=== PATIENT | male | born 1925 | race Caucasian/White ===

== ENCOUNTER 2017-05-20 11:04 | Observation (INO) | payer MEDICARE ==
[2017-05-20] MEDS ORDERED: NS 0.9% 1000 ML* 1,000 ML IV ONE (11:33)
--- NOTE | 2017-05-20 12:07 | RAD ---
Indication: Possible TIA. Resolved aphasia. Comparison: October 05, 2013 Technique: Noncontrast CT vertex of skull through foramen magnum. Report: Moderate prominence of the cerebral sulci. Decreased density in the periventricular and subcortical white matter while non-specific is most likely due to chronic microangiopathy. Negative for coy matter white matter obscuration, intra or extra-axial hemorrhage, or mass effect. Chronic atherosclerotic calcification at the intracranial internal carotid arteries as well as the vertebrobasilar system. Unremarkable partially visualized orbital contents. Negative for suspicious calvarial or skull base lesions or fractures. Clear partially visualized paranasal sinuses and mastoid air spaces. Evidence for prior partial LEFT mastoidectomy. Unremarkable scalp. IMPRESSION: Involutional change and stigmata of chronic small vessel ischemic disease. No acute intracranial process evident.
[2017-05-20 12:09] LABS: ABS Basophils 0.1 10^3/ul (0-0.2); ABS Eosinophils 0.3 10^3/ul (0-0.6); ABS Lymphocytes 2.3 10^3/ul (1.0-4.8); ABS Monocytes 0.6 10^3/ul (0-0.8); ABS Nucleated RBC 0 10^3/ul; Eosinophil % 2.3 % (0-6); Hematocrit 41 % (42-52); Hemoglobin 13.9 g/dl (14.0-18.0); Mean Corpuscular HGB Conc 34 g/dl (31-36); Mean Corpuscular Hemoglobin 35 pg (27-31); Mean Corpuscular Volume 105 fL (80-94); Mean Platelet Volume 8.2 um3 (7.4-10.4); Nucleated Red Blood Cells % 0; Platelet Count 172 10^3/ul (150-450); Red Blood Count 3.95 10^6/ul (4.0-5.4); Red Cell Distribution Width 15 % (10.5-15); White Blood Count 12.3 10^3/ul (3.5-10.8)
[2017-05-20 12:19] LABS: INR 0.92 (0.77-1.02)
[2017-05-20 12:25] LABS: EGFR Non-African American 60.5 (>60)
--- NOTE | 2017-05-20 12:27 | RAD ---
Indication: Neurologic changes. Possible TIA. Comparison: January 03, 2017 Technique: Upright AP 1210 hours Report: Bilateral costochondral calcifications noted. Elevated lung volumes. No focal pulmonary lesion, compelling alveolar consolidation, pleural effusion, pneumothorax. Negative for cardiomegaly. Unremarkable central pulmonary vasculature. Mildly tortuous descending thoracic aorta without change. IMPRESSION: 1. Elevated lung volumes strongly favoring presence of obstructive lung disease. 2. No acute cardiopulmonary process evident.
[2017-05-20] MEDS ORDERED: Iohexol 350* (CONTRAST) 500 ML MDV IV ONE (13:05)
--- NOTE | 2017-05-20 14:25 | RAD ---
INDICATION: TIA. Resolved aphasia. COMPARISON: CT brain of the same date and January 18, 2015 carotid ultrasound. October 13, 2009 CT angiogram. TECHNIQUE: Multidetector CT images were obtained from the aortic arch to the vertex of the head with 80 mL Omnipaque 350 IV contrast. Arterial phase of enhancement. Multiplanar reformation including maximum intensity projection. 3-D arterial volume rendering. Stenosis estimations based on denominator of distal arterial diameter. 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 Atherosclerotic plaque at the RIGHT subclavian artery with less than 50% stenosis. Atherosclerotic plaque at the RIGHT vertebral artery ostium with approximate 50% stenosis resulting without change. Moderate atherosclerotic plaque at the RIGHT common carotid artery with up to 50% stenosis resulting increased over the prior exam. Calcific and noncalcific plaque at the RIGHT carotid bulb and proximal internal carotid artery with up to 50% stenosis resulting without significant change. Tortuous distal RIGHT common carotid artery. Atherosclerotic plaque at the LEFT common carotid artery with approximate 30% stenosis resulting. Atherosclerotic plaque at the LEFT carotid bulb and proximal internal carotid artery without hemodynamic significant stenosis. LEFT internal carotid endarterectomy compared with the prior exam. Diffuse degenerative spondylosis and facet joint osteoarthritis. At C5-C6 large dorsal disc osteophyte complex results in moderate acquired central canal stenosis without significant change. NECK ANGIOGRAM IMPRESSION: 1. 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 2. Less than 50% stenosis of the RIGHT subclavian artery. 3. Unchanged approximate 50% stenosis at the ostium of the RIGHT vertebral artery. 4. Approximate 50% stenosis at the RIGHT common carotid artery with interval increase. 5. Approximate 50% stenosis at the proximal RIGHT internal carotid artery without significant change. 6. Postsurgical change of LEFT carotid endarterectomy without evidence for hemodynamic significant restenosis. HEAD ANGIOGRAM REPORT: Diffuse calcific plaque at the bilateral intracranial internal carotid arteries with suggestion of long segment approximate 50% stenosis without significant change. Unremarkable patent M1 and M2 segments of the cerebral arteries and A1 and A2 segments of the anterior cerebral arteries. No definitive anterior communicating artery visualized. Unremarkable cerebellar artery origins and basilar artery. Patent posterior cerebral arteries are supplied primarily by the posterior circulation with normal variant hypoplastic posterior communicating arteries. No visualized intracranial aneurysms. Normal opacification of the dural venous sinuses. HEAD ANGIOGRAM IMPRESSION: No central intracranial arterial occlusion or compelling high-grade stenosis. CPT II: CPT II Codes: 3100F
[2017-05-20] MEDS ORDERED: Metoprolol Tartrate IV* 1 MG/ML 5 ML VIAL IV ONE (14:45)
[2017-05-20 15:11] LABS: Urine Appearance Cloudy; Urine Blood Negative (Negative); Urine Color Yellow; Urine Ketones Negative (Negative); Urine Protein 1+(30 mg/dL) (Negative); Urine Specific Gravity 1.012 (1.010-1.030); Urine Urobilinogen Negative (Negative)
[2017-05-20] MEDS ORDERED: hydrALAZINE IV* 20 MG/ML VIAL IV SLOW PU ONE (15:53)
[2017-05-20] MEDS ORDERED: Acetaminophen TAB* 325 MG PO PRN (16:50)
[2017-05-20] MEDS ORDERED: Al Hydrox/Mg Hydrox/Simet LIQ* 30 ML UDC PO PRN (16:50)
[2017-05-20] MEDS ORDERED: Albuterol 2.5 MG/3 ML NEB.SOL* (0.083%) INH PRN (16:50)
[2017-05-20] MEDS ORDERED: Albuterol HFA INHALER* 8 gm MDI INH PRN (17:21)
[2017-05-20] MEDS ORDERED: hydrALAZINE IV* 20 MG/ML VIAL IV SLOW PU PRN (19:24)
[2017-05-20] MEDS: Atenolol TAB* 25 MG PO SCH (19:52)
[2017-05-20] MEDS: NIFEdipine CAP* 10 MG PO SCH (19:52)
[2017-05-20] MEDS: Enoxaparin(*) 40 MG/0.4 ML SYR SUBCUT SCH (19:55)
[2017-05-20] MEDS: Captopril TAB* 12.5 MG PO SCH (19:55)
[2017-05-20] MEDS: Dipyridamole/Aspirin 25/200* CAP.ER PO SCH (19:55)
[2017-05-20] MEDS ORDERED: Atorvastatin* 20 MG TAB PO SCH (21:00)
--- NOTE | 2017-05-20 22:28 | HP ---
CC: Dr. Schwartz * HISTORY AND PHYSICAL: DATE OF ADMISSION: 05/20/17 TIME OF ADMISSION: 5 p.m. PRIMARY CARE PHYSICIAN: Dr. Schwartz. CHIEF COMPLAINT: Difficulty with his speech. HISTORY OF PRESENT ILLNESS: This is an 89-year-old male with history of TIA and peripheral vascular disease who presents with 10 minutes of difficulty word finding and slurred speech that began this morning on his way to [place]. He is accompanied by his in the emergency department. She was driving them to [place] this morning when she noticed that Mr. Brantley was unable to use the words he was trying to use and that his speech was slurred. Mr. Brantley recalls this vividly and states that he felt frustrated that he could not explain what he was trying to explain and when he was trying to describe the weather is beautiful, it came out as the weather was snowy and he could hear that the words that were coming out of his mouth were different than what he was trying to say. His believes this episode lasted approximately 10 minutes. They got to [place] and assessed him in the parking lot and felt that he was back to his baseline, so she drove them back to [facility] where they were evaluated in the health center there and EMS was called. He continued to be at his baseline neurologic status; however, EMS recommended evaluation in the emergency department, so they traveled by ambulance to our ED. Upon arrival to the emergency department, he was noticed to be hypertensive at 162/63, but remained at his baseline neurologically. He has been well recently and has no recent cough, cold, sore throat, fevers, chills, sick contacts, no recent falls. He ambulates with a cane. He performs all his ADLs and IADLs independently except driving, which he has not done for 4 years. PAST MEDICAL HISTORY: COPD; peripheral arterial disease, status post bilateral fem-pop bypasses; carotid artery endarterectomy on the left; hypertension; TIA 4 years ago. PAST SURGICAL HISTORY: Carotid endarterectomy, fem-pop bypass, many dermatologic surgeries. SOCIAL HISTORY: He lives with his at [facility]. 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 REVIEW OF SYSTEMS: Negative except as per the HPI. PHYSICAL EXAMINATION GENERAL: Alert, well-appearing man, in no acute distress. VITAL SIGNS: Blood pressure 201/71, heart rate 59, pulse ox 92% on room air, respiratory rate 17, temperature 97.9. HEENT: Seborrheic keratosis over the scalp. Pupils 3 mm and reactive to light bilaterally. No nystagmus. No pharyngeal exudates or erythema. Tongue is midline. Face is symmetric. NECK: No cervical lymphadenopathy. No JVP. LUNGS: Scattered end-expiratory wheezes. No rhonchi or rales. No spinous process tenderness. No CVA tenderness. CHEST: Barrel chested. Regular rate and rhythm. No murmurs. PMI is nondisplaced. ABDOMEN: Soft, nontender, and nondistended. No guarding or rebound. EXTREMITIES: No edema. DP pulses are 1+ bilaterally. No hair on the distal extremities. NEUROLOGIC: Alert and oriented x3. Excellent short and long-term memory. Strength is 5+ in all extremities. Coordination is intact. He follows complex commands. Proprioception is intact and sensation is intact. DIAGNOSTIC STUDIES/LAB DATA: Sodium 140, potassium 4.5, chloride 106, bicarb 32, BUN 22, creatinine 1.14, glucose 104. Lactic acid 0.8. LDL 70, HDL 43.6, triglycerides 91, cholesterol 132, troponin 0.00. Head CTA, the neck angiogram shows chronic occlusion of the proximal left subclavian with subclavian steal less than 50% stenosis of the left subclavian artery, unchanged approximately 50% stenosis at the ostium of the right vertebral artery, approximately 50% stenosis of the right common carotid artery with interval increase, approximate 50% stenosis at the proximal right internal carotid artery without significant change, postsurgical change of left carotid endarterectomy without evidence of hemodynamic significant restenosis. Head angiogram shows diffuse calcific plaque at the bilateral intracranial internal carotid arteries with suggestion of long segment approximately 50% stenosis without significant change, M1 and M2 segments of the cerebral arteries and A1 and A2 segments of the anterior cerebral arteries, no definitive anterior communicating artery visualized, unremarkable cerebellar artery origins and basilar artery, patent posterior cerebral arteries are supplied primarily by the posterior circulation with normal variant hyperplastic posterior communicating arteries. Chest x-ray: Elevated lung volume strongly favoring presence of obstructive lung disease, no acute cardiopulmonary process evident. Brain CT: Involutional change and stigmata of chronic small vessel ischemic disease. No acute intracranial process is evident. ASSESSMENT AND PLAN: This is an 89-year-old man with history of transient ischemic attack and peripheral vascular disease, who presents with 10 minutes of slurred speech and trouble word finding this morning that has now resolved. 1. Transient ischemic attack. At this point, his symptoms are most suspicious for a transient ischemic attack especially given his extensive vascular history and resolution of symptoms within 10 minutes. He warrants admission for observation overnight and monitoring on telemetry. I will check an MRI in the morning and he should also have a transthoracic echocardiogram in the morning. I am consulting Neurology. He is already on good medical management at baseline including a high potency statin and antiplatelet medication. I will continue these and look to Neurology for any further medical management of this vascular disease. 2. Hypertensive urgency. I cannot classify this as an hypertensive emergency at this point, especially now that he has returned to his baseline with an even more elevated blood pressure than when he arrived. I would like to treat his hypertension with oral medications with a goal for systolic blood pressure in the 140s to 160s. He takes nifedipine XL at home. So, I will use the short- acting nifedipine for ease of titration. 3. Peripheral arterial disease, status post fem-pop bypass. Continue Aggrenox , simvastatin. 4. Chronic obstructive pulmonary disease. Continue p.r.n. albuterol inhaler. 5. Code status. He is DNR. 6. Disposition. Admit Mr. Brantley to the telemetry floor under the hospitalist service with a Neurology consult. [id number]/CPS #: [id number] MTDD
[2017-05-21] MEDS ORDERED: Finasteride TAB* 5 MG PO SCH (09:00)
[2017-05-21] MEDS: Dipyridamole/Aspirin 25/200* CAP.ER PO SCH (09:21)
[2017-05-21] MEDS: Atenolol TAB* 25 MG PO SCH (09:21)
[2017-05-21] MEDS: Captopril TAB* 12.5 MG PO SCH (09:21)
[2017-05-21] MEDS: NIFEdipine CAP* 10 MG PO SCH ×2 (09:22→14:17)
--- NOTE | 2017-05-21 11:20 | RAD ---
HISTORY: TIA COMPARISONS: Head CT dated May 20, 2017 TECHNIQUE: The following sequences were obtained of the head: Sagittal T1-weighted images, axial T2-weighted images, axial FLAIR images, axial susceptibility weighted images, axial T1-weighted images. Additionally, axial diffusion-weighted images were obtained with calculated apparent diffusion coefficients. FINDINGS: The study is limited by patient motion artifact. HEMORRHAGE/INFARCT: There is no hemorrhage or acute infarct. MASSES/SHIFT: There is no mass or shift. EXTRA-AXIAL SPACES/MENINGES: There are no extra-axial fluid collections. SULCI AND VENTRICLES: There is diffuse and proportional enlargement of the sulci and ventricles. CEREBRUM: There is diffuse multifocal elevated T2/FLAIR signal in the periventricular and subcortical white matter. BRAINSTEM: There is elevated T2/FLAIR signal within the pontine white matter. CEREBELLUM: There are no focal parenchymal abnormalities. The cerebellar tonsils are normal in size and position. SELLA: The sella is normal. PINEAL: The pineal region is clear. CP ANGLE/TEMPORAL BONES: The labyrinthine structures are grossly normal. VESSELS: Normal flow-voids are noted within the visualized vertebral vasculature. DIFFUSION ABNORMALITIES: There are no diffusion abnormalities. PARANASAL SINUSES/MASTOIDS: The paranasal sinuses are clear. ORBITS: The orbits are unremarkable. BONES AND SOFT TISSUE: No bone or soft tissue abnormalities are noted. OTHER: None IMPRESSION: 1. LIMITED STUDY. 2. DIFFUSE INVOLUTIONAL CHANGE 3. ELEVATED T2/FLAIR SIGNAL IN THE PERIVENTRICULAR, SUBCORTICAL, AND PONTINE WHITE MATTER, NONSPECIFIC, BUT SUGGESTIVE OF CHRONIC SMALL VESSEL ISCHEMIA. 4. NO RESTRICTED DIFFUSION TO SUGGEST ACUTE INFARCT.
--- NOTE | 2017-05-21 14:17 | PN ---
Subjective Date of Service: 05/21/17 Interval History: Patient seen and examined. Alert, no complaints, symptoms currently resolved. Having cardiac echo completed now. Denies fever, chills, headache, dizziness, n/ v, pain, SOB or chest pain. Objective Active Medications: Acetaminophen (Tylenol Tab*) 650 mg PO Q4H PRN PRN Reason: FEVER/PAIN Al Hydrox/Mg Hydrox/Simethicone (Maalox Plus*) 30 ml PO Q6H PRN PRN Reason: INDIGESTION Albuterol (Ventolin 2.5 Mg/3 Ml Neb.Nicole*) 2.5 mg INH [id number] AWAKE PRN PRN Reason: sob/wheezing Albuterol (Ventolin Hfa Inhaler*) 2 puff INH Q4H PRN PRN Reason: SOB/WHEEZING Atenolol (Tenormin Tab*) 25 mg PO BID [facility] Last Admin: 05/21/17 09:21 Dose: 25 mg Atorvastatin Calcium (Lipitor*) 20 mg PO BEDTIME [facility] Last Admin: 05/20/17 19:55 Dose: 20 mg Captopril (Capoten Tab*) 12.5 mg PO BID [facility] Last Admin: 05/21/17 09:21 Dose: 12.5 mg Dipyridamole/Aspirin (Aggrenox 25/200*) 1 cap.er PO BID [facility] Last Admin: 05/21/17 09:21 Dose: 1 cap.er Enoxaparin Sodium (Lovenox(*)) 40 mg SUBCUT Q24H [facility] Last Admin: 05/20/17 19:55 Dose: 40 mg Finasteride (Proscar Tab*) 5 mg PO DAILY [facility] Last Admin: 05/21/17 09:21 Dose: 5 mg Hydralazine HCl (Apresoline Iv*) 5 mg IV SLOW PU Q6H PRN PRN Reason: SBP > 185 Nifedipine (Procardia Cap*) 30 mg PO TID [facility] Last Admin: 05/21/17 09:22 Dose: 30 mg Vital Signs - 8 hr 05/21/17 05/21/17 07:47 11:45 Temperature 98.2 F 97.9 F Pulse Rate 63 60 Respiratory 18 Rate Blood Pressure 162/46 141/43 (mmHg) O2 Sat by Pulse 93 94 Oximetry Oxygen Devices in Use Now: None Appearance: Alert, NAD Ears/Nose/Mouth/Throat: NL Teeth, Lips, Gums, Mucous Membranes Moist Neck: NL Appearance and Movements; NL JVP, Trachea Midline Respiratory: Symmetrical Chest Expansion and Respiratory Effort, Clear to Auscultation Cardiovascular: NL Sounds; No Murmurs; No JVD, RRR, No Edema Neurological: Alert and Oriented x 3, NL Sensation, NL Muscle Strength and Tone Nutrition: Taking PO's Result Diagrams: 05/20/17 11:56 05/20/17 11:56 Diagnostic Imaging: Patient Name: DONN DELEON Medical Record#: [id number] Ordering Physician: Katherine Miner [employer] Acct.#: [id number] : 1925 Age: 89 Sex: M Location: [address] [place] [address]/TELEMETRY Exam Date: 05/21/17857 ADM Status: ADM Umesh Order Information: MRI BRAIN W/O Accession Number: [id number] CPT: 34522 HISTORY: TIA COMPARISONS: Head CT dated May 20, 2017 TECHNIQUE: The following sequences were obtained of the head: Sagittal T1- weighted images, axial T2-weighted images, axial FLAIR images, axial susceptibility weighted images, axial T1-weighted images. Additionally, axial diffusion-weighted images were obtained with calculated apparent diffusion coefficients. FINDINGS: The study is limited by patient motion artifact. HEMORRHAGE/INFARCT: There is no hemorrhage or acute infarct. MASSES/SHIFT: There is no mass or shift. EXTRA-AXIAL SPACES/MENINGES: There are no extra-axial fluid collections. SULCI AND VENTRICLES: There is diffuse and proportional enlargement of the sulci and ventricles. CEREBRUM: There is diffuse multifocal elevated T2/FLAIR signal in the periventricular and subcortical white matter. BRAINSTEM: There is elevated T2/FLAIR signal within the pontine white matter. CEREBELLUM: There are no focal parenchymal abnormalities. The cerebellar tonsils are normal in size and position. SELLA: The sella is normal. PINEAL: The pineal region is clear. CP ANGLE/TEMPORAL BONES: The labyrinthine structures are grossly normal. VESSELS: Normal flow-voids are noted within the visualized vertebral vasculature. DIFFUSION ABNORMALITIES: There are no diffusion abnormalities. PARANASAL SINUSES/MASTOIDS: The paranasal sinuses are clear. ORBITS: The orbits are unremarkable. BONES AND SOFT TISSUE: No bone or soft tissue abnormalities are noted. OTHER: None IMPRESSION: 1. LIMITED STUDY. 2. DIFFUSE INVOLUTIONAL CHANGE 3. ELEVATED T2/FLAIR SIGNAL IN THE PERIVENTRICULAR, SUBCORTICAL, AND PONTINE WHITE MATTER, NONSPECIFIC, BUT SUGGESTIVE OF CHRONIC SMALL VESSEL ISCHEMIA. 4. NO RESTRICTED DIFFUSION TO SUGGEST ACUTE INFARCT. <Electronically signed by Iftikhar Clifton MD in [place]> 05/21/17 1116 Dictated By: Iftikhar Clifton MD Dictated Date/Time: 05/21/17 1116 Transcribed Date/Time: 05/21/17 111 Copy to: 1 of 2 Assess/Plan/Problems-Billing Assessment: This is an 89 year old male patient admitted with c/o TIA like symptoms. - Patient Problems (1) TIA (transient ischemic attack) Comment: - CT/CTA/MRI negative for acute infarct or pathology - continue statin - Pending neuro eval - Pending ECHO read (2) Hypertension Code(s): I10 - ESSENTIAL (PRIMARY) HYPERTENSION SNOMED Code(s): 04737183 Comment: - Hypertensive urgency now resolved - Continue home meds with hydralazine as needed (3) HLD (hyperlipidemia) Code(s): E78.5 - HYPERLIPIDEMIA, UNSPECIFIED SNOMED Code(s): 07722337 Comment: - continue statin (4) PAD (peripheral artery disease) Code(s): I73.9 - PERIPHERAL VASCULAR DISEASE, UNSPECIFIED SNOMED Code(s): 920831252 Comment: - Continue aggrenox and statin (5) COPD (chronic obstructive pulmonary disease) Code(s): J44.9 - CHRONIC OBSTRUCTIVE PULMONARY DISEASE, UNSPECIFIED SNOMED Code(s): 63319322 Comment: - albuterol PRN Status and Disposition: Remain inpatient. Counseling and/or Coordination of Care Minutes: Coordinated with patient's and staff
[2017-05-21 16:12] VITALS: BP 132/52
[2017-05-21] MEDS: Enoxaparin(*) 40 MG/0.4 ML SYR SUBCUT SCH (16:18)
--- NOTE | 2017-05-21 16:25 | ECHO ---
Patient: DONN DELEON [facility] Rec#: [id number] : 1925 Date: 05/21/2017 Age: 89y Height: 167.6 cm / 66.0 in Weight: 60.3 kg / 132.9 lbs Sex: M BSA: 1.7 Room#: 432 Admit Date#: 05/20/2017 Type: Inpatient Referring: Doris Melo MD Reading: Tin Ravi DO Assistant Kitchen Manager: Jennifer Mares RN RDCS CC: Shiva Schwartz MD Transthoracic Echocardiogram Indication: TIA BP: 192/62 HR: 60 Rhythm: NSR Findings History: CAD, HTN, PVD, former smoker, COPD Technical Comments: The study quality is fair. The study is technically limited due to poor parasternal windows. The study is technically limited due to the patient's history of COPD. The study is technically limited due to the patient's smoking history. Completed at 1335. Left Ventricle: The left ventricular chamber size is normal. Mild to moderate concentric left ventricular hypertrophy is observed. Global left ventricular wall motion and contractility are within normal limits. The left ventricle appears hyperdynamic. The estimated ejection fraction is greater than 65%. Abnormal left ventricular diastolic function is observed. Left Atrium: The left atrium is mildly dilated. Right Ventricle: The right ventricular chamber size and systolic function are within normal limits. Right Atrium: The right atrium is mildly dilated. A patent foramen ovale is not demonstrated by color Doppler. Aortic Valve: The aortic valve structure is not well visualized. The aortic valve leaflets are mildly thickened. There is no evidence of aortic regurgitation. There is no evidence of aortic stenosis. Mitral Valve: Mild mitral annular calcification present. The mitral valve leaflets are mildly thickened. There is trace to mild mitral regurgitation. There is no evidence of mitral stenosis. Tricuspid Valve: The tricuspid valve leaflets are normal. There is trace tricuspid regurgitation. Unable to estimate the right ventricular systolic pressure. There is no tricuspid stenosis. Pulmonic Valve: The pulmonic valve structure is not well visualized. There is no evidence of pulmonic regurgitation. There is no pulmonic stenosis. Pericardium: There is no significant pericardial effusion. Aorta: There is mild dilatation of the ascending aorta. The aortic arch is not well visualized. The aortic root is normal in size. Pulmonary Artery: The main pulmonary artery is not well visualized. Venous: The inferior vena cava appears normal in size. There is a greater than 50% respiratory change in the inferior vena cava dimension. Conclusions The left ventricular chamber size is normal. Mild to moderate concentric left ventricular hypertrophy is observed. The left ventricle appears hyperdynamic. The estimated ejection fraction is greater than 70%. The left atrium is mildly dilated. The right ventricular chamber size and systolic function are within normal limits. No significant valvular abnormalities noted. There is mild dilatation of the ascending aorta. No recent echocardiogram available for comparison. Measurements Name Value Normal Range RVDdMajor (2D) 3.8 cm (2.2 - 4.4) RAd ISD 4CH 5.2 cm (3.4 - 4.9) RA (A4C)W 3.1 cm (2.9 - 4.6) IVSd (2D) 1.3 cm (0.6 - 1) LVPWd (2D) 1.3 cm (0.6 - 1) LVIDd (2D) 3.7 cm (3.6 - 5.4) LVIDs (2D) 2.4 cm - LV FS (2D) 35 % (25 - 45) Aortic Annulus 1.8 cm (1.4 - 2.6) Ao root diameter (2D) 3.3 cm (2.1 - 3.5) Ascending Ao 3.6 cm (2.1 - 3.4) LA dimension (AP) 2D 3.9 cm (2.3 - 3.8) LAd ISD 4CH 4.9 cm (2.9 - 5.3) LA ISD 4CH W 3.9 cm (2.5 - 4.5) Name Value Normal Range LA ESV SP 4CH (A/L) 50 ml - LA ESV SP 2CH (A/L) 47 ml - LA ESV BP (A/L) 52 ml - LA ESV BP (A/L) index 31 ml/m2 - LA ESV SP 4CH (MOD) 47 ml - LA ESV SP 2CH (MOD) 46 ml - Name Value Normal Range MV E-wave Vmax 0.86 m/sec - MV deceleration time 337 msec - MV A-wave Vmax 1.1 m/sec - MV E:A ratio 0.8 ratio - LV septal e' Vmax 0.07 m/sec - LV lateral e' Vmax 0.06 m/sec - LV E:e' septal ratio 12.3 ratio - LV E:e' lateral ratio 14.3 ratio - Name Value Normal Range AV Vmax 1.2 m/sec - AV VTI 33.9 cm - AV peak gradient 5.9 mmHg - AV mean gradient 4.1 mmHg - LVOT Vmax 1 m/sec - LVOT VTI 24.8 cm - LVOT peak gradient 4 mmHg - LVOT mean gradient 2.1 mmHg - Name Value Normal Range IVC diameter 1.9 cm - Name Value Normal Range PV Vmax 0.82 m/sec -
--- NOTE | 2017-05-21 20:05 | CONS ---
CC: Dr. Schwartz * NEUROLOGY CONSULTATION: DATE OF CONSULT: 05/21/17 PRIMARY CARE PHYSICIAN: Dr. Schwartz. REQUESTING PHYSICIAN: Dr. Doris Melo. REASON FOR CONSULT: TIA. HISTORY OF PRESENT ILLNESS: Mr. Brantley is an 89-year-old man with past history of peripheral vascular disease, COPD, and TIA, who presented to the emergency department yesterday with approximately 10 to 20 minutes of fluent aphasia. He reports that he and his were driving to [employer] when he was speaking and suddenly his words did not make any sense. He also mentions that he was making up new words as he was speaking. They got to the [employer] parking lot, but then turned around and went back to [facility] and was evaluated by the medical personnel there, who then called EMS and brought him to the emergency department. At that time, he was back essentially at his baseline neurologic status. He was able to ambulate from his car back into [facility], but his states he was walking a little bit slower than his normal for him and he did mention to her that he felt a bit dizzy, but he does not recall that now. He indicates that his blood pressure always runs high and will often average around 160 systolic. He notes that his home cuff reads 17 mmHg higher than the medical personnel at [facility], but it is not unusual for him to see readings of 180, 190, or 200 systolic on his own home cuff. He also continues to smoke 3 cigarettes a day with a past history of smoking up to 2 packs per day. He is very adamant that he has no interest in discontinuing smoking completely as he feels this is his only pleasure left in life. In the emergency department, he underwent CT as well as CTA of his head and neck. He was then admitted to the hospital and he has been monitored on telemetry and has undergone MRI scan of the brain as well as echocardiogram. PAST MEDICAL HISTORY: COPD; peripheral vascular disease, status post bilateral fem- pop bypasses; carotid stenosis, status post carotid endarterectomy on the left; hypertension; TIA several years ago, which they believe involved word finding difficulties and difficulty producing speech, they also described some episodes where he would have drooping of one side of his face, which they believe is the left. PAST SURGICAL HISTORY: Carotid endarterectomy, fem-pop bypasses bilaterally, dermatologic surgeries related to basal cell carcinoma. MEDICATIONS: Home medication list: 1. Nifedipine ER 60 mg q.p.m. 2. Finasteride 5 mg daily. 3. Ventolin inhaler p.r.n. 4. Zantac 75 mg b.i.d. 5. Nifedipine ER 30 mg q.a.m. 6. Aggrenox b.i.d. 7. Simvastatin 40 mg at bedtime. 8. Captopril 12.5 mg twice daily. 9. Atenolol 25-50 mg twice daily. ALLERGIES: There is a reported allergy to TETANUS TOXOID. FAMILY HISTORY: Noncontributory at this time. SOCIAL HISTORY: He lives with his at [facility]. He smokes 3 cigarettes per day and is a long-time smoker. 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 He drinks half a glass of bourbon in water per night. He denies any other drug use. REVIEW OF SYSTEMS: As per the HPI, otherwise negative. PHYSICAL EXAM: Vital Signs: Temperature 97.9, blood pressure 141/43, heart rate 60, oxygen saturation 94% on room air. In review of his blood pressures since admission, the highest measured was 211/77 at around 3 p.m. yesterday. On general exam, he is an elderly, thin-appearing man, in no acute distress. His heart is in a regular rate and rhythm with no obvious murmurs. There are bilateral carotid bruits. He has arcus senilis bilaterally. The lungs were clear but he had distant breath sounds bilaterally. There is no lower extremity edema. On neurologic examination, he is oriented to the month and the year, but initially states that it is 1918 and then corrects to 2018. He was a day or two off on the exact date. He was able to read the stroke cards without any difficulty. His pupils are small at one point 5 mm bilaterally. His versions are full with the exception of some limitation of upgaze and no nystagmus. Visual rodgers are full to confrontation. Facial sensation and musculature is full and symmetric. Hearing is intact to loud voice. The palate elevates symmetrically and the tongue is midline. On motor examination, he has normal tone in the upper and lower extremities with reduced bulk throughout. He has some very mild symmetric weakness in his upper extremities proximally greater than distally, but nothing focal and no pronator drift. Similarly, he has a very mild proximal weakness in the lower extremities, better distally. Sensation is intact to pinprick in the upper and lower extremities. Reflexes are 2+ in the upper extremities and knees, absent at the ankles with downgoing toes. [id number] is intact without ataxia. He ambulates with a cane with a steady gait. DIAGNOSTIC STUDIES/LAB DATA: His white count was slightly elevated at 12.3 yesterday, hematocrit 41, hemoglobin 13.9, platelet count 172. Coagulation studies were normal. His chemistry panel was overall unremarkable and his LDL is 69, total cholesterol 127, HDL 37.7, and triglycerides 103. His urinalysis was negative. His brain CT was personally reviewed and shows evidence of global atrophy and small vessel disease. 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 There is also plaque at the right subclavian artery with less than 50% stenosis. There is moderate plaque in the right common carotid with up to 50% stenosis and a similar degree of stenosis in the right internal carotid artery. He has less than 50% stenosis in the left carotid artery. He has significant atherosclerotic disease in the intracranial circulation, but no obvious occlusions or major areas of stenosis. His brain MRI was personally reviewed and shows extensive small vessel disease, but no acute changes. IMPRESSION AND PLAN: Carlos Alberto Brantley is an 89-year-old man with multiple vascular risk factors including poorly controlled hypertension and continued tobacco use, who presented with transient ischemic attack of fluent aphasia yesterday. He appears to be back to his neurologic baseline at this time. He was treated with Aggrenox and I am not inclined to change his antiplatelet therapy at this point since he has other modifiable risk factors, which are likely more pertinent. I discussed this with him and his that he needs improved blood pressure control though recognizing that in his age group, we do not want to drop his blood pressure too much. I think if possible it would be advisable to get his blood pressures down more into the 140s and encouraged him to obtain a different blood pressure cuff which would be more accurate at home. He was encouraged to quit smoking, but is pretty unequivocal that he is not interested in this. He was encouraged to continue exercising at [facility], though to take it easy for the rest of this week. 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 [id number]/[facility] #: [id number] GREG
--- NOTE | 2017-05-22 03:21 | DS ---
CC: Dr. Reymundo Mathew * DISCHARGE SUMMARY: DATE OF ADMISSION: 05/20/17 DATE OF DISCHARGE: 05/21/17 PRIMARY CARE PROVIDER: Shiva Schwartz MD ATTENDING FOR THIS ADMISSION: Phillip Clement MD * (DICTATED BY SU HENRY NP) HOSPITAL COURSE: This is a very pleasant 89-year-old male patient who was brought into the emergency department initially from [facility], where he does live with his . Per the notes, the patient was having some speech difficulties that had occurred yesterday morning when he was going to [employer]. This difficulty with speech lasted about 20 minutes. EMS was called. Then he had no deficits after that, but the patient said he felt tired and weak and some lightheadedness, but he had no further complaints. The patient came to the emergency department for evaluation. He was worked up for TIA as he has had TIAs in the past. He denies any history of dementia or seizures or any other neurologic impairments. The patient was seen by Dr. Esther Solano of the neurologic service. The patient had a followup imaging studies. He had a cardiac echo, which showed left ventricular chamber size as normal. Mild-to- moderate concentric left ventricular hypertrophy, also left ventricle appears hyperdynamic. The estimated ejection fraction is greater than 70%. Left atrium is mildly dilated. The right ventricular chamber size and systolic function are within normal limits. There are no significant valvular abnormalities noted and there was mild dilatation of the ascending aorta. The patient also had CT of the head, CTA and MRI. Brain CT showed no acute findings. CTA, however, focalities, which were likely old but may have contributed to his current symptoms. 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 MRI that was subsequently completed shows a limited study with diffuse involutional change, elevated T2/FLAIR signal in the periventricular, subcortical and pontine white manner, which is nonspecific but is suggestive of chronic small vessel ischemia with no restricted diffusion to suggest acute infarct. PHYSICAL EXAMINATION: On the day of discharge, the patient is awake and alert, in no acute distress. Vital signs are currently blood pressure 132/52, heart rate 65, temperature 99.5, respiratory rate 18, satting at 93% to 94% on room air. HEENT: The patient is atraumatic, normocephalic. PERRLA with nonicteric sclerae. Neck was supple, nontender. No carotid bruit noted and no thyromegaly appreciated. Cardiovascular: S1, S2 are present. No murmurs, gallops or rubs. He has regular sinus on telemetry with no ectopy or ST segment changes. Lungs are clear bilaterally to auscultation with no wheezing, rhonchi, or rales. Abdomen is soft, nontender, nondistended. Positive bowel sounds in all 4 quadrants. was deferred. Musculoskeletal: There is no clubbing, no cyanosis and no edema. He has +2 distal pulses palpable, a steady gait unassisted. Neurologic: No focal deficits. Psychiatric: He is cooperative and appropriate. LABORATORY DATA: WBC is 12.3, RBC is 3.95, hemoglobin 13.9, hematocrit 41. MCV 105, MCH 35. Sodium 140, potassium 4.5, chloride 106, CO2 52, BUN 22, creatinine 1.14, GFR 60.5, glucose 104, lactic acid 0.8, calcium 9.6, total bilirubin 0.40. AST 16, ALT 6, alk phos 49, troponin is negative at 0.00. Total protein 7.1, albumin 3.9, globulin 3.2, triglycerides 91, cholesterol 132 , LDL 70 and HDL is 43.6. Urinalysis shows yellow, cloudy urine with some hyaline cast and 1+ bacteria. However, no nitrites, no blood, no ketones, no leukocyte esterase. INR is 0.92. DISCHARGE PLAN: After discussing with Dr. Esther Solano, she is clearing the patient from a neurologic standpoint to be discharged back to [facility]. The patient will be discharged in the care of his . She has been notified. There are no new findings. DISCHARGE DIAGNOSES: 1. Transient ischemic attack. 2. History of peripheral arterial disease, on Aggrenox. 3. History of hypertension. 4. Chronic obstructive pulmonary disease, not in exacerbation. DISCHARGE MEDICATIONS: Include: 1. Procardia 60 mg in the evening, 30 mg in the morning.. 2. Finasteride 5 mg daily. 3. Albuterol inhaler 2 puffs q.2 hours as needed. 4. Zantac 75 mg 2 times a day. 5. Aggrenox 25/200 one capsule 2 times a day. 6. Zocor 40 mg at bedtime. 7. Captopril 12.5 two times a day. 8. Atenolol 25 mg 1 tablet 2 times daily. DISPOSITION: The patient was discharged in stable condition in the care of his . All questions were answered. The patient was instructed to follow up with Dr. Schwartz, his primary care provider, and Dr. Esther Solano in the next 1 to 2 months or as needed sooner. The patient's states her understanding of discharge instructions. All questions were answered. The patient and his were agreeable to this discharge plan. SU HENRY NP [id number]/[facility] #: [id number] GREG
== END 2017-05-21 19:40 | disposition home or self-care (01) ==
LOC: ED 11:04 → MEDTELE 16:50
PROVIDERS: ADMIT Internal Medicine; ATTEND Internal Medicine
DX: G45.9 Transient cerebral ischemic attack, unspecified (principal); I73.9 Peripheral vascular disease, unspecified; I16.0 Hypertensive urgency; J44.9 Chronic obstructive pulmonary disease, unspecified; Z79.899 Other long term (current) drug therapy; F17.210 Nicotine dependence, cigarettes, uncomplicated; R94.31 Abnormal electrocardiogram [ECG] [EKG]; I51.7 Cardiomegaly
CPT/HCPCS: 36415; 70450; 70496; 70498; 70551; 71045; 80053; 80061; 81003; 81015; 83605; 84484; 85025; 85610; 85730; 86850; 86900; 86901; 87086; 93005; 93306; 96361; 96372; 96374; 99284; A9270-GY; G0378; G8978-GP-CI; G8979-GP-CI; G8980-GP-CI; J0360; J1650; J3490; Q9967

== ENCOUNTER 2017-07-13 12:22 | Emergency (ER) | payer MEDICARE ==
--- OUTSIDE RECORDS SUMMARY | 2017-07-13 12:57 | XMS REPORT ---
:1925 External Reference #:[id number] Author Organization [facility] [employer] Address [address] [address] Phone [phone] Care Team Providers Name Role Phone Shiva Schwartz MD Primary Care Physician Unavailable Payers Type Date Identification Numbers Payment Provider Subscriber Medicare Primary Effective: Policy Number: Medicare Donn Ocampo 1994 [id number] Deleon PayID: [id number] [address] [place] [address] [facility] Part B Effective: Policy Number: [facility] Donn Ocampo 2009 [id number] [facility] [id number] [address] [place] [address] Problems Date Description Provider Status Onset: 08/21/2014 Chronic ischemic heart disease Sima Nolan, N.P. Active Onset: 08/21/2014 Peripheral vascular disease Sima Nolan, N.P. Active Onset: 08/21/2014 Transient cerebral ischemia Sima Nolan, N.PWally Active Onset: 08/21/2014 Malignant neoplasm of skin of trunk Sima Nolan, N.PWally Active Onset: 09/03/2014 Tobacco user Sima Nolan N.PWally Active Onset: 06/27/2017 Essential hypertension Esther Solano MD Active Family History Date Family Member(s) Problem(s) Comments General Diabetes General Cancer General heart disease General hypertension Siblings 1 1 brother Social History Type Date Description Comments Marital Status Lives With Occupation Retired Cigarette Use Light tobacco smoker (10 or fewer 3 per day cigarettes/day) Smokeless Tobacco Never Used Smokeless Tobacco ETOH Use Consumes liquor once daily 1 drink Smoking Light tobacco smoker (10 or fewer cigarettes/day) Recreational Drug Use Denies Drug Use Daily Caffeine Consumes on average 5-10 cups of regular coffee per day Exercise Type/Frequency Exercises sporadically Allergies, Adverse Reactions, Alerts Date Description Reaction Status Severity Comments 01/26/2015 Norvasc active diarrhea 01/26/2015 Tetanus Toxoids active rash 01/26/2015 Hydrochlorothiazide active gout 06/27/2017 Hay Fever active 07/28/2013 NKDA inactive Medications Medication Date Status Form Strength Qnty SIG Indications Ordering Provider Spiriva 03/28 Active Aerosol 2.5mcg/Ac 4unit 1 puff J44.9 Karey Respima t s every day MD Oralia Ventolin HFA 02/22 Active Aerosol 108(90Bas 8gm jordan 2 puffs J06.9 e) inhalation Veblen, mcg/Act every 4 to M.D. 6 hours as needed sob/wheezin g Nifedipine ER Active Tablets ER 30mg 90tab 1 qam and 2 Unknown /0000 24HR s qpm Ranitidine HCL Active Capsules 150mg 60cap 1/2 cap po Unknown /0000 s bid Aggrenox Active Caps ER 25-200mg 60cap 1 po bid Unknown /0000 12HR s Atenolol Active Tablets 25mg 90tab 2 qam and 1 Unknown /0000 s qpm Captopril Active Tablets 12.5mg 180ta 1 po bid Unknown /0000 bs Simvastatin 00 Active Tablets 80mg 30tab 1/2 po qhs Unknown /0000 s Fluorouracil Active Cream 0.5% use as Unknown /0000 directed on legs and arms prn Finasteride Active Tablets 5mg 1 by mouth Unknown /0000 every day Centrum Adults Active Tablets as directed Unknown /0000 Prednisone 02/22 Hx Tablets 20mg 10tab Take 2 J06.9 s tablets (40 Veblen, - mg) po M.D. 03/05 daily for days Augmentin 02/22 Hx Tablets 875-125mg 10tab Take 1 tab J06.9 s po Q12 Veblen, - hours for 5 M.D. Ibuprofen 05/20 Hx Tablets 400mg 30tab as needed M70.42 Donell s José Miguel, IRON WORKER APPRENTICE - 06/26 Clindamycin HCL 05/20 Hx Capsules 300mg 30cap 1 capsule M70.42 s by mouth José Miguel, IRON WORKER APPRENTICE - three times 05/27 a day x' 10 days Dicloxacillin 03/02 Hx Capsules 250mg 40cap 1 tablet M70.42 Donell s every 6 José Miguel, IRON WORKER APPRENTICE - hours x's 03/12 Ibuprofen 03/02 Hx Capsules 200mg 30cap take 1-2 M70.42 s tablets José Miguel, IRON WORKER APPRENTICE - every 6 05/20 hours bid 7 days, then Q6 prn Ultracet 07/28 Hx Tablets 37.5-325m 30tab 1 - 2 by Jahaira /2014 g s mouth Arora, - q4-6hr as M.D. 08/21 needed pain Multivitamins Hx Capsules 30cap 1 capsule Unknown /0000 s abel;y - 05/27 Hydrocodone Hx 1 tab by Unknown Bitartrate/Acet /0000 mouth every aminophen - 4-6 hours 08/13 as needed /2013 Aleve Hx Capsules 220mg 1 cap po qd Unknown /0000 - 05/23 Flonase Allergy Hx Suspension 50mcg/Act 2 sprays in Unknown Relief /0000 each - nostril 05/23 Hydrocodone-Lobito Hx Tablets 5-325mg 1-2 tab po Unknown taminophen /0000 bid prn - 03/27 Prednisone Hx Tablets 10mg 20 mg x 1 Unknown /0000 day, then - one tab po 03/27 q day for days. Medications Administered in Office Medication Date Status Form Strength Qnty SIG Indications Ordering Provider Depomedrol Administered Injection Dirk Guillaume, 40MG 016 M.D. Vital Signs Date Vital Result Comment 06/27/2017 Height 66 inches 5'6" Weight 136.50 lb Heart Rate 64 /min BP Systolic 142 mmHg BP Diastolic 52 mmHg BMI (Body Mass Index) 22.0 kg/m2 03/28/2017 Height 66 inches 5'6" Weight 135.00 lb per pt Heart Rate 56 /min BP Systolic Sitting 126 mmHg BP Diastolic Sitting 54 mmHg Respiratory Rate 14 /min O2 % BldC Oximetry 94 % BMI (Body Mass Index) 21.8 kg/m2 Neck Circumference in inches 15 03/05/2017 Weight 133.12 lb Heart Rate 68 /min BP Systolic Sitting 152 mmHg BP Diastolic Sitting 58 mmHg Respiratory Rate 20 /min Body Temperature 97.0 F O2 % BldC Oximetry 94 % 02/27/2017 Respiratory Rate 18 /min O2 % BldC Oximetry 94 % 02/22/2017 Weight 130.50 lb Heart Rate 71 /min BP Systolic 144 mmHg BP Diastolic 70 mmHg Respiratory Rate 18 /min Body Temperature 97.7 F O2 % BldC Oximetry 93 % 06/21/2015 Pain Level 0 06/21/2015 Height 66 inches 5'6" Weight 135.00 lb Heart Rate 57 /min BP Systolic 169 mmHg BP Diastolic 57 mmHg BMI (Body Mass Index) 21.8 kg/m2 05/28/2015 Weight 138.38 lb Heart Rate 60 /min BP Systolic Sitting 164 mmHg BP Diastolic Sitting 60 mmHg Respiratory Rate 24 /min Body Temperature 98.4 F O2 % BldC Oximetry 95 % 05/26/2015 Height 66 inches 5'6" Weight 135.00 lb Heart Rate 73 /min BP Systolic 136 mmHg BP Diastolic 50 mmHg Body Temperature 98.3 F BMI (Body Mass Index) 21.8 kg/m2 03/22/2015 Weight 141.25 lb Heart Rate 48 /min BP Systolic Sitting 154 mmHg BP Diastolic Sitting 78 mmHg Respiratory Rate 16 /min Body Temperature 96.3 F O2 % BldC Oximetry 95 % 03/15/2015 Weight 140.25 lb Heart Rate 58 /min BP Systolic Sitting 152 mmHg BP Diastolic Sitting 72 mmHg Respiratory Rate 20 /min Body Temperature 97.7 F O2 % BldC Oximetry 95 % 03/08/2015 Weight 139.00 lb Heart Rate 60 /min BP Systolic Sitting 120 mmHg BP Diastolic Sitting 72 mmHg Respiratory Rate 18 /min Body Temperature 97.0 F O2 % BldC Oximetry 98 % 03/02/2015 Weight 139.25 lb Heart Rate 64 /min BP Systolic 136 mmHg BP Diastolic 42 mmHg Respiratory Rate 20 /min Body Temperature 97.6 F O2 % BldC Oximetry 94 % 01/26/2015 Weight 137.50 lb Heart Rate 59 /min BP Systolic Sitting 130 mmHg BP Diastolic Sitting 60 mmHg Respiratory Rate 20 /min Body Temperature 97.0 F O2 % BldC Oximetry 97 % 09/07/2014 Heart Rate 68 /min BP Systolic Sitting 134 mmHg BP Diastolic Sitting 60 mmHg Respiratory Rate 18 /min Body Temperature 98.8 F 09/03/2014 Weight 139.38 lb Heart Rate 57 /min BP Systolic Sitting 142 mmHg BP Diastolic Sitting 58 mmHg Respiratory Rate 20 /min Body Temperature 97.9 F 08/21/2014 Weight 139.12 lb Heart Rate 57 /min BP Systolic Sitting 158 mmHg BP Diastolic Sitting 60 mmHg Respiratory Rate 24 /min Body Temperature 97.3 F O2 % BldC Oximetry 96 % 09/18/2013 Height 66 inches 5'6" Weight 140.00 lb Heart Rate 53 /min BP Systolic 128 mmHg BP Diastolic 61 mmHg BMI (Body Mass Index) 22.6 kg/m2 08/14/2013 Height 66 inches 5'6" Heart Rate 61 /min BP Systolic 159 mmHg BP Diastolic 64 mmHg 07/28/2013 Height 66 inches 5'6" Weight 136.00 lb Heart Rate 80 /min BP Systolic Sitting 128 mmHg BP Diastolic Sitting 82 mmHg BMI (Body Mass Index) 21.9 kg/m2 07/17/2012 Heart Rate 64 /min BP Systolic Sitting 136 mmHg BP Diastolic Sitting 58 mmHg Respiratory Rate 16 /min Results Test Date Test Result H/L Range Note Laboratory test 05/26/2015 Mycobacterial Culture See Comment 1 finding Laboratory test 05/26/2015 Fungal Cult Other SEE RESULT BELOW 2 finding Sources Laboratory test 05/26/2015 Fungal Cult Other SEE RESULT BELOW 3 finding Sources Laboratory test 05/26/2015 Anaerobic Culture SEE RESULT BELOW 4 finding Fungal Cult Other Sources SEE RESULT BELOW 5 Acid Fast Culture & 05/26/2015 Acid Fast Culture Smear SEE RESULT BELOW 6 Smear Body Fluid Cell Count 05/26/2015 Body Fluid Source Synovial Fluid Body Fluid Appearance Cloudy Body Fluid Color Yellow Body Fluid Volume 6 mL Body Fluid Neutrophils 69 Body Fluid Lymph 31 Body Fluid Total Cells Counted 100 Body Fluid WBC 3520 Body Fluid RBC 0 Fluid Reviewed By (SEE NOTE) 7 Body Fluid C&S 05/26/2015 Body Fluid Cult SEE RESULT BELOW 8 Gram Stain Laboratory test 05/26/2015 Body Fluid None Seen 9 finding Crystals Laboratory test 03/08/2015 Wound SEE RESULT BELOW 10, 11 finding Culture/Sensi Laboratory test 09/03/2014 Lyme Disease Negative Negative 12 finding Serology Basic Metabolic 08/24/2014 Sodium 140 mmol/L 133-145 Panel Potassium 4.2 mmol/L 3.5-5.0 Chloride 106 mmol/L 101-111 Co2 Carbon Dioxide 29 mmol/L 22-32 Anion Gap 5 mmol/L 2-11 Glucose 100 mg/dL 70-100 Blood Urea Nitrogen 21 mg/dL 6-24 Creatinine 1.17 mg/dL 0.67-1.17 BUN/Creatinine Ratio 17.9 8-20 Calcium 9.0 mg/dL 8.6-10.3 Egfr Non- 59.0 >60 Egfr 75.8 >60 13 Laboratory test finding 08/24/2014 LDL Cholesterol Direct 60 mg/dL 14 Ast (Sgot) 15 U/L 13-39 CBC Auto Diff 08/24/2014 White Blood Count 11.1 10^3/uL High 4.8-10.8 Red Blood Count 4.25 10^6/uL 4.0-5.4 Hemoglobin 14.5 g/dL 14.0-18.0 Hematocrit 45 % 42-52 Mean Corpuscular Volume 106 fL High 80-94 15 Mean Corpuscular Hemoglobin 34 pg High 27-31 Mean Corpuscular HGB Conc 32 g/dL 31-36 Red Cell Distribution Width 14 % 10.5-15 Platelet Count 171 10^3/uL 150-450 Mean Platelet Volume 10 um3 7.4-10.4 Abs Neutrophils 6.6 10^3/uL 1.5-7.7 Abs Lymphocytes 3.2 10^3/uL 1.0-4.8 Abs Monocytes 0.6 10^3/uL 0-0.8 Abs Eosinophils 0.7 10^3/uL High 0-0.6 Abs Basophils 0.1 10^3/uL 0-0.2 Abs Nucleated RBC 0.02 10^3/uL Granulocyte % 59.2 % 38-83 Lymphocyte % 28.3 % 25-47 Monocyte % 5.4 % 1-9 Eosinophil % 6.2 % High 0-6 Basophil % 0.9 % 0-2 Nucleated Red Blood Cells % 0.2 Laboratory test finding 08/24/2014 Lyme Disease Serology Negative Negative 16 Basic Metabolic Panel 07/17/2013 Sodium 140 mmol/L 133-145 Potassium 4.5 mmol/L 3.7-5.6 Chloride 104 mmol/L 101-111 Co2 Carbon Dioxide 31 mmol/L 22-32 Anion Gap 5 mmol/L 2-11 Glucose 105 mg/dL High 70-100 Blood Urea Nitrogen 26 mg/dL High 6-24 Creatinine 1.27 mg/dL High 0.67-1.17 BUN/Creatinine Ratio 20.5 High 8-20 Calcium 9.4 mg/dL 8.6-10.3 Egfr Non- 53.9 >60 Egfr 69.3 >60 17 Laboratory test finding 07/17/2013 LDL Cholesterol Direct 62 mg/dL 18 Ast 18 U/L 13-39 TSH (Thyroid Stimulating Horm) 0.97 IU/mL 0.34-5.60 1 SOURCE: SYNOVIAL FLUID, lt knee MYCOBACTERIAL CULTURE FINAL No growth after 60 days of incubation. Test Performed by: [place] [address] Tool Grinding Technician: Golden Pearce II, M.D., Ph.D. 2 SEE RESULT BELOW Name: DONN DELEON : [address]: Paulie Galaviz MD Acct: [id number] Unit: [id number] AGE: 89 Location: [facility] Re05/26/15 SEX: M Status: REG REF SPEC: [id number] MACY: 05/26/15-[address]: Paulie Galaviz MD REQ: [id number] RECD: 05/26/15 STATUS: COMP _ SOURCE: MISC SOURC SPDESC:KNEE ORDERED: Fungal - Other Procedure Result Reported Site Fungal Cult - Other Sources Final 06/21/15- 5 ML No Growth Week 4 * ML - MAIN LAB ([facility]) . END OF REPORT * ML=Testing performed at Main Lab DEPARTMENT OF PATHOLOGY, [address] [place] [address] Mikhail Downing M.D. Director [facility] # [id number] 3 SEE RESULT BELOW Name: DONN DELEON : [address]: Paulie Galaviz MD Acct: [id number] Unit: [id number] AGE: 89 Location: [facility] Re05/26/15 SEX: M Status: REG REF SPEC: [id number] MACY: 05/26/15-[address]: Paulie Galaviz MD REQ: [id number] RECD: 05/26/15 STATUS: RES _ SOURCE: MISC SOURC SPDESC:KNEE ORDERED: Fungal - Other Procedure Result Reported Site Fungal Cult - Other Sources Preliminary 06/14/15- 1133 ML No Growth Week 3 * ML - MAIN LAB ([facility]) . END OF REPORT * ML=Testing performed at Main Lab DEPARTMENT OF PATHOLOGY, [address] [place] [address] Mikhail Downing M.D. Director [facility] # [id number] 4 SEE RESULT BELOW Name: DONN DELEON : [address]: Paulie Galaviz MD Acct: [id number] Unit: [id number] AGE: 89 Location: [facility] Re05/26/15 SEX: M Status: REG REF SPEC: [id number] MACY: 05/26/15-[address] [facility] [address]: Paulie Galaviz MD REQ: [id number] RECD: 05/26/15 STATUS: COMP _ SOURCE: BODY FLUID SPDESC:KNEE ORDERED: Anaerobic Cult, AFB Cult Smear Procedure Result Reported Site Anaerobic Culture Final 05/30/15- 1108 ML No Growth Day 4 Acid Fast Stain - Direct Final 05/27/15- 1025 ML AFB Smear Result No Acid Fast Bacillus Present (Negative) Preparation By Cytospin Smear Due to limited sensitivity of the smear, results should be used as an adjunct in evaluating the patient's status and cultural examination is highly recommended for diagnosis. * ML - MAIN LAB ([facility]) . END OF REPORT * ML=Testing performed at Main Lab DEPARTMENT OF PATHOLOGY, [address] [place] [address] Mikhail Downing M.D. Director [facility] # [id number] 5 SEE RESULT BELOW Name: DELEON,DOUGLAS Damaris : [address]: Paulie Galaviz MD Acct: [id number] Unit: [id number] AGE: 89 Location: [facility] Re05/26/15 SEX: M Status: REG REF SPEC: [id number] MACY: 05/26/15-[address]: Paulie Galaviz MD REQ: [id number] RECD: 05/26/15719 STATUS: RES _ SOURCE: MISC SOURC SPDESC:KNEE ORDERED: Fungal - Other Procedure Result Reported Site Fungal Cult - Other Sources Preliminary 06/07/15 984 ML No Growth Week 2 * ML - MAIN LAB ([facility]) . END OF REPORT * ML=Testing performed at Main Lab DEPARTMENT OF PATHOLOGY, [address] [place] [address] Mikhail Downing M.D. Director [facility] # [id number] 6 SEE RESULT BELOW Name: DELEONDONN : [address]: Paulie Galaviz MD Acct: [id number] Unit: [id number] AGE: 89 Location: [facility] Re05/26/15 SEX: M Status: REG REF SPEC: [id number] MACY: 05/26/15-[address]: Paulie Galaviz MD REQ: [id number] RECD: 05/26/15 STATUS: RES _ SOURCE: BODY FLUID SPDESC:KNEE ORDERED: Anaerobic Cult, AFB Cult Smear Procedure Result Reported Site Anaerobic Culture PENDING Acid Fast Stain - Direct Final 05/27/15- 1025 ML AFB Smear Result No Acid Fast Bacillus Present (Negative) Preparation By Cytospin Smear Due to limited sensitivity of the smear, results should be used as an adjunct in evaluating the patient's status and cultural examination is highly recommended for diagnosis. * ML - MAIN LAB ([facility]) . END OF REPORT * ML=Testing performed at Main Lab DEPARTMENT OF PATHOLOGY, [address] [place] [address] Mikhail Downing M.D. Director [facility] # [id number] 7 Acute inflammation. Recommend correlation with microbiologic culture studies. Reviewed by Kaylee Velásquez MD 8 SEE RESULT BELOW Name: DONN DELEON : [address]: Paulie Galaviz MD Acct: [id number] Unit: [id number] AGE: 89 Location: [facility] Re05/26/15 SEX: M Status: REG REF SPEC: [id number] MACY: 05/26/15-[address]: Paulie Galaviz MD REQ: [id number] RECD: 05/26/15 STATUS: COMP _ SOURCE: JOINT FLUI SPDESC:KNEE ORDERED: BF Cult/GS, MRSA/SA SSTI Procedure Result Reported Site Body Fluid Gram Stain Final 05/27/15- 0436 ML 3+ Neutrophils 2+ Nucleated Cells No Organisms Seen Preparation By Cytospin Smear Body Fluid Culture Final 05/30/15- 1108 ML No Growth Day 4 MRSA/S. aureus SSTI PCR Final 05/27/15- 06 ML Organism 1 MRSA NEGATIVE Organism 2 S.AUREUS NEGATIVE * ML - MAIN LAB ([facility]) . END OF REPORT * ML=Testing performed at Main Lab DEPARTMENT OF PATHOLOGY, [address], [place], [place] [address] Mikhail Downing M.D. Director [facility] # [id number] 9 What is the body fluid source?: Synovial (Joint) Fluid If CSF, Order CSFCC instead. Initials:: KS 10 RIGHT ELBOW 11 SEE RESULT BELOW Name: DONN DELEON : [address]: Sima Nolan NP Acct: [id number] Unit: [id number] AGE: 89 Location: [facility] Re03/08/15 SEX: M Status: REG REF SPEC: [id number] MACY: 03/08/15-[address]: Sima Nolan NP REQ: [id number] RECD: 03/09/15-1309 STATUS: COMP _ SOURCE: WOUND SPDESC: ORDERED: Culture Stain COMMENTS: RIGHT ELBOW Procedure Result Reported Site Wound/Misc Gram Stain Final 03/09/15- 1507 ML 1+ Epithelial Cells 1+ Neutrophils 1+ Gram Positive Cocci at 1506 on 03/09/15. Wound/Misc Culture Final 03/11/15- 0905 ML Organism 1 STAPHYLOCOCCUS AUREUS Quantity 3+ 1. STAPHYLOCOCCUS AUREUS M.I.C. RX --------- ------ Penicillin >=0.5 R Clindamycin <=0.25 S Erythromycin <=0.25 S Gentamicin <=0.5 S Linezolid 2 S Nitrofurantoin <=16 S Oxacillin <=0.25 S * Quinupristin/Dalfopristin <=0.25 S Rifampin <=0.5 S Tetracycline <=1 S Doxycycline - Deduced S * Minocycline - Deduced S Trimethoprim/Sulfamethoxazole <=10 S CONTINUED ON NEXT PAGE * ML=Testing performed at Main Lab DEPARTMENT OF PATHOLOGY, [address] [place] [address] Mikhail Downing M.D. Director [facility] # [id number] Patient: DONN DELEON [id number] (Continued) Specimen: [id number] Collected: 03/08/15 Received: 03/09/15 (Continued) Procedure Result Reported Site Wound/Misc Culture Final (continued) 03/11/15- 904 1. STAPHYLOCOCCUS AUREUS (continued) M.I.C. RX --------- ------ Vancomycin 1 S Imipenem-Deduced S * Ampicillin/Sulbactam-Deduced S Cefazolin-Deduced S * These antibiotics are not available in the [facility] Formulary Contact the Microbiology Department for any additional antibiotic reporting. * ML - MAIN LAB ([facility]) . END OF REPORT * ML=Testing performed at Main Lab DEPARTMENT OF PATHOLOGY, [address] [place] [address] Mikhail Downing M.D. Director [facility] # [id number] 12 Serologic response to B. burgdorferi infection is not detected, but cannot rule out early infection during which low or undetectable antibody levels to B. burgdorferi may be present. If clinically indicated, a new serum specimen should be submitted in 7-14 days. Test Performed by: [place] [address] Tool Grinding Technician: Golden Pearce II, M.D., Ph.D. 13 Because ethnic data is not always readily available, this report includes an eGFR for both -Americans and non- Americans. The National Kidney Disease Education Program (NKDEP) does not endorse the use of the MDRD equation for patients that are not between the ages of 18 and 70, are , have extremes of body size, muscle mass, or nutritional status, or are non- or non-. According to the National Kidney Foundation, irrespective of diagnosis, the stage of the disease is based on the level of kidney function: Stage Description GFR(mL/min/1.73 m(2)) 1 Kidney damage with normal or decreased GFR 90 2 Kidney damage with mild decrease in GFR 60-89 3 Moderate decrease in GFR 30-59 4 Severe decrease in GFR 15-29 5 Kidney failure <15 (or dialysis) 14 Desirable: <100 mg/dL Near Optimal: 100-129 mg/dL Borderline High: 130-159 mg/dL High: 160-189 mg/dL Very High: >189 mg/dL 15 Adult MCV greater than 105 fl incubated 1/2 hr at 37c without significant change. 16 Serologic response to B. burgdorferi infection is not detected, but cannot rule out early infection during which low or undetectable antibody levels to B. burgdorferi may be present. If clinically indicated, a new serum specimen should be submitted in 7-14 days. REPORT NOTE: Received at room temperature Test Performed by: [address] [address] Tool Grinding Technician: Golden Pearce II, M.D., Ph.D. 17 Because ethnic data is not always readily available, this report includes an eGFR for both -Americans and non- Americans. The National Kidney Disease Education Program (NKDEP) does not endorse the use of the MDRD equation for patients that are not between the ages of 18 and 70, are , have extremes of body size, muscle mass, or nutritional status, or are non- or non-. According to the National Kidney Foundation, irrespective of diagnosis, the stage of the disease is based on the level of kidney function: Stage Description GFR(mL/min/1.73 m(2)) 1 Kidney damage with normal or decreased GFR 90 2 Kidney damage with mild decrease in GFR 60-89 3 Moderate decrease in GFR 30-59 4 Severe decrease in GFR 15-29 5 Kidney failure <15 (or dialysis) 18 Desirable <100 Near Optimal 100-129 Borderline high 130-159 High 160-189 Very High >189 Procedures Date CPT Code Description Status 05/22/2017 65663 Diffusing Capacity Completed 05/22/2017 22169 Plethysmography Determination Lung Volumes & Per Completed Airway Resist 05/22/2017 35205 Pulmonary Function><Bronchodil Completed 05/21/2017 92964 ECHO Transthorasic Realtime 2D W Doppler & Color Completed Flow Hosp 05/26/2015 79877 Inject/Drain Joint/Bursa Major Completed 10/28/2013 31265 Cardiac Event Monitor Completed 08/05/2013 22986 Carpal Tunnel Release Completed 07/09/2012 36369 EEG Recording Awake & Drowsy Completed Encounters Type Date Location Provider CPT E/M Dx Office Visit 05/21/2017 7:00a [facility] [address] G45.9 I10 Z72.0 Office Visit 05/21/2017 8:28a [facility],[place] [address] G45.9 Hospitalists I73.9 J41.0 I16.0 Office Visit 05/20/2017 8:18a [facility],[place] [address] G45.9 Hospitalists I73.9 J41.0 I16.0 Office Visit 03/28/2017 11:00a [facility] [place] [address] J44.9 [facility] Office Visit 03/05/2017 8:22a [facility] Meeta Kraus, IRON WORKER APPRENTICE 27077 J06.9 J44.1 Z72.0 Office Visit 02/27/2017 12:37p [facility] Lizeth Sen, IRON WORKER APPRENTICE 63740 Z72.0 Z71.6 J06.9 Office Visit 02/22/2017 7:20a [facility] Lizeth Sen, IRON WORKER APPRENTICE 00800 J06.9 J44.1 Z72.0 Office Visit 06/21/2015 11:30a [facility] Galaviz M.D. 96277 M17.12 C.M.A. Office Visit 05/28/2015 2:57p [facility] Sima Ovidio 07045 M17.12 N.P. M17.12 Office Visit 05/26/2015 2:30p [facility] Galaviz M.D. 56654 M17.12 C.M.A. M67.362 Office Visit 05/21/2015 2:30p [facility] [place] [address] M70.42 Office Visit 03/22/2015 1:39p [facility] Simatej Nolan, N.P. 46087 L03.113 L03.115 L03.115 L03.113 Office Visit 03/15/2015 1:25p [facility] Simatej Nolan N.P. 57073 L03.115 L03.113 L03.113 L03.115 Office Visit 03/08/2015 3:42p [facility] Sima Ovidio, N.P. 63936 L03.113 L03.115 L03.115 L03.113 Office Visit 03/02/2015 9:00a [facility] [place] [address] M70.42 L03.115 T81.4xxA L03.113 Office Visit 01/26/2015 11:19a [facility] Simatej Nolan, N.P. 80827 M54.32 M54.32 Office Visit 09/07/2014 2:15p [facility] Simatej Nolan, N.P. 83209 526.89 E885.9 526.89 E885.9 729.1 Office Visit 09/03/2014 2:01p [facility] Sima Nolan, N.P. 20567 526.89 305.1 305.1 526.89 528.9 Office Visit 08/21/2014 4:38p [facility] Sima Nolan, N.P. 82252 911.4 780.79 780.79 911.4 Office Visit 07/28/2013 11:30a [facility] Jahaira Arora, 52833 354.0 [facility] Simran Office Visit 07/17/2012 8:00a [facility] Norah Aguillon M.D. 45888 784.3 [facility] 437.9 Office Visit 07/04/2012 8:30a [facility] Norah Aguillon M.D. 19790 784.3 [facility] 437.9 Plan of Care 06/27/2017 - Esther Solano MDG45.9 Transient cerebral ischemic attack, unspecifiedFollow up:: Follow up as needed.Recommendations:your goal BPs are more in the 140s and 150s for the top number. Work with Dr. Schwartz more on this. Limit salt intake Continue to cut down on smoking Bring your blood pressure readings to your visit with Dr Schwartz continue Aggrenox and simvastatin The stroke acronym is FAST - Face Arm Speech Time - get to the hospital via ambulance if you think you are having another stroke - sudden problems with speech, arm/face/leg weakness or numbness, vision loss, sudden dizziness.I10 Essential (primary) [id number] Tobacco use
[2017-07-13 14:46] LABS: INR 0.92 (0.77-1.02)
[2017-07-13 15:01] LABS: EGFR Non-African American 54.9 (>60)
[2017-07-13] MEDS ORDERED: Iodixanol* (CONTRAST) 320 MG/ML 100 ML SDV IV ONE (15:09)
--- NOTE | 2017-07-13 15:35 | RAD ---
Indication: Fall on Aggrenox. CT of the brain was performed without IV contrast. Ventricular structures are midline. No midline shift is noted. The extraction spaces are unremarkable. There is no evidence of intracranial mass or hemorrhage. There is periventricular lucency consistent with chronic ischemic change. Calcifications of the vertebral and basilar artery are noted. The bony calvaria is grossly unremarkable. IMPRESSION: Chronic ischemic White matter change. No intracranial mass or hemorrhage is noted.
--- NOTE | 2017-07-13 15:47 | RAD ---
HISTORY: Fall, right-sided rib pain COMPARISONS: None TECHNIQUE: Multiple contiguous axial CT scans of the chest were obtained with intravenous contrast. Coronal and sagittal multiplanar reformations are also submitted for review. FINDINGS: NECK AND THYROID: The lower neck and thyroid are unremarkable. CHEST WALL: There is no lower cervical, axillary, or supraclavicular lymphadenopathy by size criteria. HEART AND PERICARDIUM: Coronary and valvular cardiac calcifications are noted. AORTA AND PULMONARY VASCULATURE: There is calcification of the thoracic aorta. 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 A vascular stent is noted of the proximal left common carotid artery. The pulmonary vasculature is unremarkable. MEDIASTINUM: There is no mediastinal lymphadenopathy by size criteria. ANDREAS: There is no hilar lymphadenopathy by size criteria. AIRWAY AND ESOPHAGUS: The airway is unremarkable, without endobronchial filling defect. The esophagus is grossly normal. LUNG PARENCHYMA: The lungs are clear. PLEURA: No pleural abnormalities are noted. UPPER ABDOMEN: Renal cysts are noted. BONES AND SOFT TISSUES: Degenerative changes are noted along the spine. OTHER: None. IMPRESSION: 1. ATHEROSCLEROSIS, WITH OCCLUSION OF THE PROXIMAL LEFT SUBCLAVIAN ARTERY WITH RECONSTITUTION AT THE LEVEL OF THE VERTEBRAL ARTERY. THIS MAY INDICATE A SUBCLAVIAN STEAL PHYSIOLOGY IN THE CORRECT CLINICAL SETTING. 2. NO ACUTE CT PATHOLOGY OF THE CHEST.
[2017-07-13] MEDS ORDERED: Acetaminop/Codeine 30 MG TAB* 1 TAB (300 MG/30 MG) PO ONE (16:00)
[2017-07-13 16:13] LABS: ABS Basophils 0.1 10^3/ul (0-0.2); ABS Eosinophils 0.3 10^3/ul (0-0.6); ABS Lymphocytes 2.6 10^3/ul (1.0-4.8); ABS Neutrophils 10.4 10^3/ul (1.5-7.7); ABS Nucleated RBC 0 10^3/ul; Eosinophil % 2.1 % (0-6); Hematocrit 38 % (42-52); Hemoglobin 12.9 g/dl (14.0-18.0); Lymphocyte % 18.1 % (25-47); Mean Corpuscular HGB Conc 34 g/dl (31-36); Mean Corpuscular Hemoglobin 35 pg (27-31); Mean Corpuscular Volume 104 fL (80-94); Mean Platelet Volume 8.8 um3 (7.4-10.4); Nucleated Red Blood Cells % 0.1; Platelet Count 146 10^3/ul (150-450); Red Blood Count 3.69 10^6/ul (4.0-5.4); Red Cell Distribution Width 14 % (10.5-15); White Blood Count 14.3 10^3/ul (3.5-10.8)
[2017-07-13 17:56] VITALS: BP 137/81
--- NOTE | 2017-07-20 01:05 | ED ---
Jaime Jimenez Natalie, scribed for Alonzo Irving MD on 07/13/17 at 1507 . Syncope/Near Syncope - HPI Summary HPI Summary: The patient is an 89 y/o M presenting to the ED c/o falling and hurting right chest wall today after landing on his back today. Pt states he was inside smoking a cigarette when this occurred. He got three puffs out, didn't feel a thing, and fell down. He says he didn't have a chance to feel dizzy. The pt did not eat anything this morning. The pain is rated 6/10 in severity. The pain worsens with movement. Pt additionally c/o lacerations to left leg and left arm. Pt denies head and neck pain. He has fallen before, but he hasn't been diagnosed with a reason as to why he keeps falling. He smokes one pack of cigarettes a week. - History Of Current Complaint Chief Complaint: EDHipPelvisInjury Hx Obtained From: Patient Onset/Duration: Sudden Onset, Lasting Hours, Still Present Timing: Constant Activity At Onset: Other - standing, smoking a cigarette Associated Head Trauma: No Aggravating Factor(s): Other - movement Associated Signs And Symptoms: Negative - head and neck pain, dizziness, Other - left arm and leg lacerations - Allergies/Home Medications Allergies/Adverse Reactions: Allergies Allergy/AdvReac Type Severity Reaction Status Date / Time tetanus toxoid, adsorbed Allergy Unknown Verified 07/13/17 12:32 Reaction Details Home Medications: Home Medications Atenolol TAB* [Tenormin TAB* 50 MG] 25 mg PO QPM 07/13/17 [History Confirmed ] PMH/Surg Hx/FS Hx/Imm Hx Endocrine/Hematology History: Reports: Hx Anticoagulant Therapy - aggrenox Denies: Hx Diabetes, Hx Thyroid Disease, Hx Anemia Cardiovascular History: Reports: Hx Hypertension - W/MEDS, Hx Peripheral Vascular Disease - BYPASS BOTH LEGS FOR VASCULAR PROBLEMS, Other Cardiovascular Problems/Disorders - PERIPHERAL VASC.DIS.BILAT LE'S W/BYPASS, CAROTIDECTOMY Denies: Hx Pacemaker/ICD Respiratory History: Reports: Hx Chronic Obstructive Pulmonary Disease (COPD) Denies: Hx Asthma GI History: Reports: Hx Gastroesophageal Reflux Disease History: Reports: Hx Benign Prostatic Hyperplasia Denies: Hx Renal Disease Musculoskeletal History: Reports: Hx Arthritis - HIPS, LOW BACK, SHOULDERS Sensory History: Reports: Hx Cataracts - SURGERY 2010& 2012, Hx Contacts or Glasses, Hx Hearing Aid - ERNA Opthamlomology History: Reports: Hx Cataracts - SURGERY 2010& 2012, Hx Contacts or Glasses Neurological History: Reports: Hx Transient Ischemic Attacks (TIA) Denies: Hx Dementia, Hx Seizures Comment Only: Other Neuro Impairments/Disorders - BEEN EVALUATED, NO PROBLEMS Psychiatric History: Denies: Hx Panic Disorder, Hx Substance Abuse - Cancer History Cancer Type, Location and Year: 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 Hx Chemotherapy: No Hx Radiation Therapy: No - Surgical History Surgery Procedure, Year, and Place: cataracts 2015,left shoulder fracture, carotid endardectomy, left knee, mastoid 193, carpel tunnel 2012, bilat legs- bloodflow, no stents Hx Anesthesia Reactions: No - Immunization History Date of Influenza Vaccine: 11/2016 Infectious Disease History: No Infectious Disease History: Denies: Hx Hepatitis, Hx Human Immunodeficiency Virus (HIV), Traveled Outside the [place] in Last 30 Days - Family History Known Family History: Positive: Other - cancer - Social History Alcohol Use: Occasionally Alcohol Amount: 1 DRINK/DAY Substance Use Type: Reports: None Hx Tobacco Use: No Smoking Status (MU): Light Every Day Tobacco Smoker Amount Used/How Often: 1PPWEEK 65YRS Review of Systems Positive: Other - right chest wall pain near low back Musculoskeletal: Negative - head and neck pain Positive: Other - left leg and left arm lacerations All Other Systems Reviewed And Are Negative: Yes Physical Exam - Summary Physical Exam Summary: Appearance: Well-appearing, Well-nourished Skin: Warm. Superficial 5cm laceration on left anterior lower leg. Small skin abrasion on left posterior forearm not requiring sutures. Eyes: Normal ENT: Normal Neck: Supple, nontender Respiratory: Clear to auscultation Cardiovascular: Normal S1, S2. No murmurs. Normal distal pulses in tibial and radial bilaterally. Abdomen: Soft, nontender Musculoskeletal: Normal, Strength/ROM Intact. Exquisite chest wall tenderness to right posterior lateral chest wall, no obvious bruising. Neurological: Normal, A&Ox3 Psychiatric: Normal General: No acute distress Triage Information Reviewed: Yes Vital Signs On Initial Exam: Initial Vitals Temp Pulse Resp BP Pulse Ox 98.5 F 56 14 146/44 96 07/13/17 12:33 07/13/17 12:33 07/13/17 12:33 07/13/17 12:33 07/13/17 12:33 Vital Signs Reviewed: Yes Diagnostics - Vital Signs Vital Signs Temp Pulse Resp BP Pulse Ox 07/13/17 12:33 98.5 F 56 14 146/44 96 - Laboratory Lab Results: Lab Results 07/13/17 07/13/17 07/13/17 Range/Units 14:17 14:18 14:18 WBC 14.3 H (3.5-10.8) 10^3/ul RBC 3.69 L (4.0-5.4) 10^6/ul Hgb 12.9 L (14.0-18.0) g/dl Hct 38 L (42-52) % MCV 104 H (80-94) fL MCH 35 H (27-31) pg MCHC 34 (31-36) g/dl RDW 14 (10.5-15) % Plt Count 146 L (150-450) 10^3/ul MPV 8.8 (7.4-10.4) um3 Neut % (Auto) 72.2 (38-83) % Lymph % (Auto) 18.1 L (25-47) % Garrard % (Auto) 7.0 (0-7) % Eos % (Auto) 2.1 (0-6) % Baso % (Auto) 0.6 (0-2) % Absolute Neuts (auto) 10.4 H (1.5-7.7) 10^3/ul Absolute Lymphs (auto) 2.6 (1.0-4.8) 10^3/ul Absolute Monos (auto) 1.0 H (0-0.8) 10^3/ul Absolute Eos (auto) 0.3 (0-0.6) 10^3/ul Absolute Basos (auto) 0.1 (0-0.2) 10^3/ul Absolute Nucleated RBC 0 10^3/ul Nucleated RBC % 0.1 INR (Anticoag Therapy) 0.92 (0.77-1.02) APTT 28.4 (26.0-36.3) seconds Sodium (139-145) mmol/L Potassium (3.5-5.0) mmol/L Chloride (101-111) mmol/L Carbon Dioxide (22-32) mmol/L Anion Gap (2-11) mmol/L BUN (6-24) mg/dL Creatinine (0.67-1.17) mg/dL Est GFR ( Amer) (>60) Est GFR (Non-Af Amer) (>60) BUN/Creatinine Ratio (8-20) Glucose (70-100) mg/dL Calcium (8.6-10.3) mg/dL Magnesium (1.9-2.7) mg/dL Total Bilirubin (0.2-1.0) mg/dL AST (13-39) U/L ALT (7-52) U/L Alkaline Phosphatase (34-104) U/L Troponin I 0.00 (<0.04) ng/mL Total Protein (6.4-8.9) g/dL Albumin (3.2-5.2) g/dL Globulin (2-4) g/dL Albumin/Globulin Ratio (1-3) 05/18/18 Range/Units 14:18 WBC (3.5-10.8) 10^3/ul RBC (4.0-5.4) 10^6/ul Hgb (14.0-18.0) g/dl Hct (42-52) % MCV (80-94) fL MCH (27-31) pg MCHC (31-36) g/dl RDW (10.5-15) % Plt Count (150-450) 10^3/ul MPV (7.4-10.4) um3 Neut % (Auto) (38-83) % Lymph % (Auto) (25-47) % Garrard % (Auto) (0-7) % Eos % (Auto) (0-6) % Baso % (Auto) (0-2) % Absolute Neuts (auto) (1.5-7.7) 10^3/ul Absolute Lymphs (auto) (1.0-4.8) 10^3/ul Absolute Monos (auto) (0-0.8) 10^3/ul Absolute Eos (auto) (0-0.6) 10^3/ul Absolute Basos (auto) (0-0.2) 10^3/ul Absolute Nucleated RBC 10^3/ul Nucleated RBC % INR (Anticoag Therapy) (0.77-1.02) APTT (26.0-36.3) seconds Sodium 141 (139-145) mmol/L Potassium 4.8 (3.5-5.0) mmol/L Chloride 108 (101-111) mmol/L Carbon Dioxide 30 (22-32) mmol/L Anion Gap 3 (2-11) mmol/L BUN 32 H (6-24) mg/dL Creatinine 1.24 H (0.67-1.17) mg/dL Est GFR ( Amer) 70.6 (>60) Est GFR (Non-Af Amer) 54.9 (>60) BUN/Creatinine Ratio 25.8 H (8-20) Glucose 109 H (70-100) mg/dL Calcium 9.5 (8.6-10.3) mg/dL Magnesium 2.1 (1.9-2.7) mg/dL Total Bilirubin 0.30 (0.2-1.0) mg/dL AST 18 (13-39) U/L ALT 6 L (7-52) U/L Alkaline Phosphatase 50 (34-104) U/L Troponin I 0.00 (<0.04) ng/mL Total Protein 6.2 L (6.4-8.9) g/dL Albumin 3.7 (3.2-5.2) g/dL Globulin 2.5 (2-4) g/dL Albumin/Globulin Ratio 1.5 (1-3) Result Diagrams: 18 14:18 1818 14:18 Lab Statement: Any lab studies that have been ordered have been reviewed, and results considered in the medical decision making process. - CT Brain CT CT Interpretation: Positive (See Comments) - Chronic ischemic White matter change. No intracranial mass or hemorrhage is noted. ED physician has reviewed this report. CT Interpretation Completed By: Radiologist Chest CT CT Interpretation: Positive (See Comments) - 1. Atherosclerosis, with occlusion of the proximal left subclavian artery with reconstitution at the level of the vertebral artery. This may indicate a subclavian steal physiology in the correct clinical setting. 2. No acute CT pathology of the chest. ED physician has reviewed this report. CT Interpretation Completed By: Radiologist - EKG 14:11 Cardiac Rate: NL EKG Rhythm: Sinus Rhythm - 60 BPM EKG Interpretation: No acute ischemic ST changes. Course/Dx - Diagnoses Provider Diagnoses: Contusion of rib Discharge - Sign-Out/Discharge Documenting (check all that apply): Discharge/Admit/Transfer - Discharge Plan Condition: Improved Disposition: HOME Prescriptions: Acetaminop/Codeine 30 MG TAB* [Tylenol/Codeine 30 MG TAB*] 1 tab PO Q6H PRN #10 tab MDD 4 tabs PRN Reason: Pain - Moderate To Severe Patient Education Materials: Rib Contusion (ED) Referrals: Shiva Schwartz MD [Primary Care Provider] - Additional Instructions: PLEASE RETURN TO THE EMERGENCY ROOM IF YOU HAVE ANY WORSENING OR CONCERNING SYMPTOMS PLEASE MAKE AN APPOINTMENT FIRST THING IN THE MORNING TO BE SEEN BY YOUR PRIMARY CARE DOCTOR WITHIN 1 WEEK - Billing Disposition and Condition Condition: IMPROVED Disposition: HOME The documentation as recorded by the Jaime nelson Natalie accurately reflects the service I personally performed and the decisions made by me, Alonzo Irving MD.
== END 2017-07-13 17:55 | disposition home or self-care (01) ==
LOC: ED 12:22
DX: S20.219A Contusion of unspecified front wall of thorax, initial encounter (principal); W19.XXXA Unspecified fall, initial encounter; Y92.9 Unspecified place or not applicable; I10 Essential (primary) hypertension; I70.8 Atherosclerosis of other arteries; F17.210 Nicotine dependence, cigarettes, uncomplicated; Z88.7 Allergy status to serum and vaccine; Z79.899 Other long term (current) drug therapy
CPT/HCPCS: 36415; 70450; 71260; 80053; 83735; 84484; 85025; 85610; 85730; 93005; 99284; A9270-GY; Q9967